=== PATIENT | female | born 1960 | race Caucasian/White ===

== ENCOUNTER 2021-11-28 19:27 | Emergency (ER) | payer MEDICAID, OTHER ==
[~2021-11-28] VITALS: Ht 165.1 cm; Wt 59.9 kg
[2021-11-28] MEDS ORDERED: TRAMADOL HCL 50 MG TAB PO STA (20:44)
[2021-11-28] MEDS ORDERED: TRAMADOL HCL 50 MG TAB ONE (21:10)
[2021-11-28] MEDS ORDERED: ULTRAM 50MG50 MG PO (21:18)
== END 2021-11-28 21:42 | disposition home or self-care (01) ==
LOC: FSED 19:46
DX: S00.83XA Contusion of other part of head, initial encounter (principal); M25.521 Pain in right elbow; S39.82XA Other specified injuries of lower back, initial encounter; W01.0XXA Fall on same level from slipping, tripping and stumbling without subsequent striking against object, initial encounter; Y93.51 Activity, roller skating (inline) and skateboarding; Y92.89 Other specified places as the place of occurrence of the external cause; Z95.810 Presence of automatic (implantable) cardiac defibrillator
CPT/HCPCS: 70450; 72220; 99283